=== PATIENT | male | born 1985 | race Native Hawaiian/Other Pacific Islander ===

== ENCOUNTER 2020-06-10 11:30 | Outpatient (RCR) | payer BC ==
[~2020-06-10] VITALS: Ht 170.2 cm; Wt 106.8 kg
[2020-06-10] MEDS ORDERED: LOSA25TA41 PO (12:34)
[2020-06-10] MEDS ORDERED: MULT-1055 PO (12:34)
== END 2020-06-10 12:41 | disposition home or self-care (01) ==
LOC: PREOP 11:30
PROVIDERS: ATTEND Otolaryngology Otolaryngology/Facial Plastic Surgery
DX: Z01.818 Encounter for other preprocedural examination (principal)

== ENCOUNTER 2020-06-17 06:40 | Day surgery (SDC) | payer BC ==
[~2020-06-17] VITALS: Ht 170 cm; Wt 106.8 kg
[2020-06-17] VITALS (10 sets, daily range): BP systolic 132–147; BP diastolic 83–102
[~2020-06-17 06:40] MED LIST: LOSA25TA41 PO; MULT-1055 PO
--- NOTE | 2020-06-17 07:04 | Progress Note-Pre Operative ---
Pre-Operative Progress Note H&P Reviewed The H&P was reviewed, patient examined and no changes noted. 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
[2020-06-17] MEDS ORDERED: LACTATED RINGERS 1,000 ML IV PRN (07:30)
[2020-06-17 07:47] LABS: BASOPHILS % (AUTO) 0 % (0-10); EOSINOPHILS # (AUTO) 0.3 10^3/uL (0.0-0.3); EOSINOPHILS % (AUTO) 3 % (0-10); HEMATOCRIT 42 % (40-54); HEMOGLOBIN 14.7 g/dL (13.3-17.7); LYMPHOCYTES # (AUTO) 4.8 10^3/uL (1.0-4.0); LYMPHOCYTES % (AUTO) 50 % (12-44); MEAN CORPUSCULAR HEMOGLOBIN 30 pg (25-34); MEAN CORPUSCULAR HGB CONC 35 g/dL (32-36); MEAN CORPUSCULAR VOLUME 87 fL (80-99); MEAN PLATELET VOLUME 9.7 fL (9.0-12.2); MONOCYTES % (AUTO) 10 % (0-12); NEUTROPHILS # (AUTO) 3.5 10^3/uL (1.8-7.8); NEUTROPHILS % (AUTO) 37 % (42-75); PLATELET COUNT 298 10^3/uL (130-400); WHITE BLOOD COUNT 9.5 10^3/uL (4.3-11.0)
[2020-06-17] MEDS ORDERED: fentaNYL INJ 100 MCG/2 ML AMP ONE (07:47)
[2020-06-17] MEDS ORDERED: MIDAZOLAM 2 MG/2 ML (VERSED) VIAL ONE (07:48)
[2020-06-17] MEDS ORDERED: PHENYLEPHRINE 0.5% NASAL SPR (NEO-SYNEPHRINE) REG ONE (07:58)
[2020-06-17] MEDS ORDERED: LIDOCAINE/EPI 1%-1:100,000 (XYLOCAINE) 20ML ONE (07:58)
[2020-06-17] MEDS ORDERED: proPOfol 200 MG/20 ML (DIPRIVAN) VIAL IV ONE (08:01)
[2020-06-17] MEDS ORDERED: LIDOCAINE PF 2% 5 ML (XYLOCAINE) VIAL ONE (08:01)
[2020-06-17] MEDS ORDERED: ROCURONIUM 10 MG/ML 5 ML SYRINGE IV ONE (08:01)
[2020-06-17] MEDS ORDERED: SEVOFLURANE (ULTANE) 15 ML INHAL SOLN ONE ×2 (08:02→08:25)
[2020-06-17] MEDS ORDERED: SUCCINYLCHOLINE INJ 100 MG/5 ML SYR/VIAL ONE ×2 (08:02→09:03)
[2020-06-17] MEDS ORDERED: ONDANSETRON 4 MG/2 ML (SDV) Z0FRAN ONE ×2 (08:02→08:59)
--- NOTE | 2020-06-17 08:47 | Progress Note-Post Operative ---
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 Specimen(s) collected/removed tonsils MICHELLE OLVERA MD Jun 17, 2020 08:47
[2020-06-17] MEDS ORDERED: HYDROcodone/APAP 7.5MG-325 MG/15 ML (LORTAB) UDC PO PRN (09:00)
[2020-06-17] MEDS ORDERED: NS IV 1000 ML 1,000 ML IV SCH (09:00)
[2020-06-17] MEDS ORDERED: APAP 325 MG/10.15 ML LIQ (TYLENOL) UDC PO PRN (09:00)
[2020-06-17] MEDS ORDERED: GLYCOPYRROLATE 0.2 MG/ML (ROBINUL) 2 ML VIAL ONE (09:02)
[2020-06-17] MEDS ORDERED: NEOSTIGMINE 3 MG/3 ML VIAL ONE (09:02)
[2020-06-17] MEDS ORDERED: PROMETHAZINE INJ 25 MG/ML (PHENERGAN) AMP IVP ONE (09:15)
[2020-06-17] MEDS ORDERED: ONDANSETRON 4 MG/2 ML (SDV) Z0FRAN IVP PRN (09:15)
[2020-06-17] MEDS ORDERED: MEPERIDINE (DEMEROL) INJ 50 MG/ML IVP ONE (09:15)
[2020-06-17] MEDS ORDERED: morphine INJ 10 MG/ML 1ML (SYR OR VIAL) IVP ONE (09:15)
[2020-06-17] MEDS ORDERED: HYDROmorphone 2 MG/ML VIAL (DILAUDID) IV ONE (09:15)
[2020-06-17] MEDS ORDERED: HYDR15SO8 PO (10:47)
[2020-06-17] MEDS ORDERED: TETRACAINESUCKERS MT (10:47)
[2020-06-17] MEDS ORDERED: AMOX250S5 PO (10:47)
[2020-06-17] MEDS ORDERED: DEXAINTSOL PO (10:47)
--- NOTE | 2020-06-17 12:57 | Anesthesia-General Post-Op ---
General Patient Condition Mental Status/LOC: Same as Preop Cardiovascular: Satisfactory Nausea/Vomiting: Absent Respiratory: Satisfactory Pain: Controlled Complications: Absent Post Op Complications Complications None Follow Up Care/Instructions Patient Instructions None needed. Anesthesia/Patient Condition Patient Condition Patient is doing well, no complaints, stable vital signs, no apparent adverse anesthesia problems. No complications reported per nursing. GERRY GOOD CRNA Jun 17, 2020 12:57
== END 2020-06-17 11:50 ==
LOC: SDC 06:40
PROVIDERS: ATTEND Otolaryngology Otolaryngology/Facial Plastic Surgery
DX: J03.90 Acute tonsillitis, unspecified (principal); J35.01 Chronic tonsillitis; J30.9 Allergic rhinitis, unspecified; I10 Essential (primary) hypertension; E66.9 Obesity, unspecified; Z68.36 Body mass index [BMI] 36.0-36.9, adult; Z82.3 Family history of stroke; Z83.3 Family history of diabetes mellitus; Z80.9 Family history of malignant neoplasm, unspecified; Z79.899 Other long term (current) drug therapy
CPT/HCPCS: 36415; 85025; 87081